=== PATIENT | male | born 1985 ===

== ENCOUNTER 2021-07-14 16:42 | Emergency (ER) | payer OTHER ==
[2021-07-14 17:56] LABS: ANION GAP 16.3 mEq/L (7-13); CHLORIDE,CL 104 mmol/L (98-107); SODIUM,NA 141 mmol/L (136-145)
[2021-07-14] MEDS ORDERED: Iopamidol 612 MG/ML 100 ML Bottle IVPUSH ONE (18:05)
[2021-07-14] MEDS ORDERED: Ondansetron 4 MG/2 ML SDV IVPUSH ONE (18:05)
[2021-07-14] MEDS ORDERED: Sodium Chloride 0.9% 1,000 ML IV ONE (18:06)
[2021-07-14 18:07] LABS: CORONAVIRUS COVID-19 NAA NEGATIVE (NEGATIVE)
== END 2021-07-14 20:14 | disposition home or self-care (01) ==
LOC: DL.ED 16:42
DX: K52.9 Noninfective gastroenteritis and colitis, unspecified (principal); Z20.822 Contact with and (suspected) exposure to COVID-19
CPT/HCPCS: 0240U; 36415; 74177; 80053; 82150; 83605; 83690; 84443; 85025; 87045; 87046; 87177; 87899; 96374; 99284; J2405; J7030; Q9967